=== PATIENT | female | born 1990 | race American Indian/Alaskan Native ===

== ENCOUNTER → 2018-03-12 | Outpatient (CLI) | payer OTHER ==
[~2018-03-12] MED LIST: Amoxicillin875 MG PO; CEPH500 PO; FAMO20 PO; FERSU125EA PO; HYDACE5 PO; IBUP800 PO; Keflex500 MG PO; NEOPOLHCSU BOTHEARS; ONDA4ODT MM; ONDA8 PO; ONDA8ODT MM; PRENZ PO; PROM25S PR; RXHYD5325 PO; Zofran Odt4 MG SL
== END ==
LOC: LAB 19:03 → LAB SHORT 19:03
PROVIDERS: Nurse Practitioner Family
DX: Z01.419 Encounter for gynecological examination (general) (routine) without abnormal findings (principal)
CPT/HCPCS: G0145

== ENCOUNTER 2018-05-13 12:10 | Day surgery (SDC) | payer OTHER ==
[~2018-05-13] VITALS: Ht 180.3 cm; Wt 97.1 kg
== END 2018-05-13 23:04 | disposition home or self-care (01) ==
LOC: ORSCMMR 12:10 → ORD 13:30 → ORSCMMR 13:30
PROVIDERS: Orthopaedic Surgery
PROC: 0SNDXZZ Release Left Knee Joint, External Approach (ICD-10-PCS; principal; 2018-05-13 13:30)
DX: M24.662 Ankylosis, left knee (principal)
CPT/HCPCS: J1100; J1885; J2250; J2405; J3010; J7120

== ENCOUNTER 2018-10-04 13:12 | Emergency (ER) | payer OTHER ==
[~2018-10-04] VITALS: Ht 180.3 cm; Wt 97.1 kg
[2018-10-04] MEDS ORDERED: KETO10 PO (13:44)
[2018-10-04] MEDS ORDERED: Cyclobenzaprine5 MG PO (13:44)
== END 2018-10-04 14:04 | disposition home or self-care (01) ==
LOC: ER 13:12
DX: S39.012A Strain of muscle, fascia and tendon of lower back, initial encounter (principal); X58.XXXA Exposure to other specified factors, initial encounter; Z88.5 Allergy status to narcotic agent; Z91.048 Other nonmedicinal substance allergy status
CPT/HCPCS: 96372; 99283-25; J1885

== ENCOUNTER 2019-01-23 08:26 | Emergency (ER) | payer OTHER ==
[~2019-01-23] VITALS: Ht 182.9 cm; Wt 99.8 kg
[~2019-01-23 08:26] MED LIST changes: +Cyclobenzaprine5 MG PO; +KETO10 PO
[2019-01-23] MEDS ORDERED: ONDA4ODT MM (09:13)
[2019-01-23] MEDS ORDERED: Augmentin 875-1 EACH PO (09:13)
== END 2019-01-23 10:36 | disposition home or self-care (01) ==
LOC: ER 08:26
DX: S61.452A Open bite of left hand, initial encounter (principal); S61.451A Open bite of right hand, initial encounter; S61.552A Open bite of left wrist, initial encounter; S61.551A Open bite of right wrist, initial encounter; W55.01XA Bitten by cat, initial encounter
CPT/HCPCS: 73090; 73130; 99283-25

== ENCOUNTER → 2019-03-10 | Outpatient (CLI) | payer OTHER ==
[~2019-03-10] MED LIST changes: +Augmentin 875-1 EACH PO
== END | disposition home or self-care (01) ==
LOC: LAB SHORT 14:50 → LAB EV 14:50
DX: R30.0 Dysuria (principal)
CPT/HCPCS: 87086

== ENCOUNTER → 2019-06-30 | Outpatient (CLI) | payer OTHER | END | disposition home or self-care (01) | LOC: LAB EV 16:47 → LAB SHORT 16:47 | DX: R51 Headache (principal) | CPT/HCPCS: 85651 ==

== ENCOUNTER 2019-09-16 07:56 | Emergency (ER) | payer OTHER ==
[~2019-09-16] VITALS: Ht 180.3 cm; Wt 99.8 kg
[2019-09-16] MEDS ORDERED: CYCL10 PO (08:54)
== END 2019-09-16 09:07 | disposition home or self-care (01) ==
LOC: ER 07:56
DX: S29.012A Strain of muscle and tendon of back wall of thorax, initial encounter (principal); X58.XXXA Exposure to other specified factors, initial encounter; Z88.5 Allergy status to narcotic agent; Z91.048 Other nonmedicinal substance allergy status
CPT/HCPCS: 99283

== ENCOUNTER → 2019-10-09 | Outpatient (CLI) | payer OTHER ==
[~2019-10-09] MED LIST changes: +CYCL10 PO
== END | disposition home or self-care (01) ==
LOC: LAB SHORT 11:30 → LAB EV 11:30
DX: R30.0 Dysuria (principal)
CPT/HCPCS: 87077; 87086; 87186

== ENCOUNTER → 2020-08-24 | Outpatient (CLI) | payer OTHER ==
[2020-08-26 14:57] LABS: CORONAVIRUS (COVID19) CSH-NRL Negative (Negative)
== END | disposition home or self-care (01) ==
LOC: LAB 16:31 → LAB SHORT 16:31
PROVIDERS: Family Medicine
DX: Z20.828 Contact with and (suspected) exposure to other viral communicable diseases (principal)
CPT/HCPCS: U0003

== ENCOUNTER 2021-01-05 08:02 | Day surgery (SDC) | payer OTHER ==
[~2021-01-05] VITALS: Ht 182.9 cm; Wt 99.5 kg
[2021-01-05] MEDS ORDERED: PSEUDOEPHEDRINE30 M1 PO (08:31)
[2021-01-05] MEDS ORDERED: ERGO50000 PO (08:31)
[2021-01-05] MEDS ORDERED: PSEUDOEPHEDRINE30 M1 (08:32)
== END 2021-01-05 09:56 | disposition home or self-care (01) ==
LOC: ORSCSDS 08:02
PROVIDERS: Internal Medicine Gastroenterology
PROC: 0DBK8ZX Excision of Ascending Colon, Via Natural or Artificial Opening Endoscopic, Diagnostic (ICD-10-PCS; principal; 2021-01-05 09:15)
PROC: 0DBC8ZX Excision of Ileocecal Valve, Via Natural or Artificial Opening Endoscopic, Diagnostic (ICD-10-PCS; principal; 2021-01-05 09:15)
DX: R10.31 Right lower quadrant pain (principal); D12.2 Benign neoplasm of ascending colon; K64.8 Other hemorrhoids; K52.9 Noninfective gastroenteritis and colitis, unspecified; Z79.899 Other long term (current) drug therapy
CPT/HCPCS: 88305; J2704; J7120

== ENCOUNTER → 2023-10-19 | Outpatient (CLI) | payer OTHER ==
[~2023-10-19] MED LIST changes: +ERGO50000 PO; +PSEUDOEPHEDRINE30 M1; +PSEUDOEPHEDRINE30 M1 PO
== END ==
LOC: LAB SHORT 10:34 → LAB 10:34
DX: N39.0 Urinary tract infection, site not specified (principal)
CPT/HCPCS: 87086

== ENCOUNTER 2023-11-27 17:56 | Emergency (ER) | payer OTHER ==
[~2023-11-27] VITALS: Ht 182.9 cm; Wt 86.2 kg
[2023-11-27 18:16] VITALS: BP 128/81
[2023-11-27 19:07] LABS: Influenza A, PCR NEGATIVE (NEGATIVE); Influenza B, PCR NEGATIVE (NEGATIVE); Resp Syncytial Virus, PCR NEGATIVE (NEGATIVE); SARS-Cov-2 (COVID-19) PCR, MMC NEGATIVE (NEGATIVE)
[2023-11-27] MEDS ORDERED: Flonase 0.05% N16 GM (19:59)
== END 2023-11-27 20:01 | disposition home or self-care (01) ==
LOC: ER 17:56
PROVIDERS: Student in an Organized Health Care Education/Training Program
DX: J06.9 Acute upper respiratory infection, unspecified (principal); J34.89 Other specified disorders of nose and nasal sinuses; Z91.048 Other nonmedicinal substance allergy status; Z88.5 Allergy status to narcotic agent; Z79.899 Other long term (current) drug therapy; Z79.51 Long term (current) use of inhaled steroids
CPT/HCPCS: 0241U; 99283

== ENCOUNTER → 2024-05-06 | Outpatient (CLI) | payer OTHER ==
[~2024-05-06] MED LIST changes: +Flonase 0.05% N16 GM
[2024-05-06 10:25] LABS: BASOPHILS ABSOLUTE AUTO 0.03 K/mm3 (0.00-0.23); BASOPHILS PERCENT AUTO 0 % (0-2); EOSINOPHILS ABSOLUTE AUTO 0.11 K/mm3 (0.00-0.68); EOSINOPHILS PERCENT AUTO 1 % (0-6); Hemoglobin 13.8 g/dL (11.5-16.0); IMMATURE GRAN ABSOLUTE AUTO 0.01 K/mm3 (0.00-0.10); IMMATURE GRAN PERCENT AUTO 0 % (0-1); LYMPHOCYTES ABSOLUTE AUTO 3.19 K/mm3 (0.84-5.20); LYMPHOCYTES PERCENT AUTO 39 % (21-46); MONOCYTES ABSOLUTE AUTO 0.57 K/mm3 (0.16-1.47); MONOCYTES PERCENT AUTO 7 % (4-13); Mean Corpuscular HGB 27.6 pg (26.0-34.0); Mean Corpuscular HGB Conc 32.1 g/dL (31.5-36.5); Mean Corpuscular Volume 86 fL (80-100); Mean Platelet Volume 11.3 fL (9.1-12.4); NEUTROPHILS ABSOLUTE AUTO 4.19 K/mm3 (1.96-9.15); NEUTROPHILS PERCENT AUTO 52 % (41-73); Platelet Count 266 K/mm3 (150-400); RDW Coefficient Variation 13.5 % (11.7-14.2); RDW Standard Deviation 42.7 fL (35.1-46.3)
[2024-05-06 10:31] LABS: Bun/Creatinine Ratio 14.1 (12.0-20.0); Calcium, Blood 8.9 mg/dL (8.5-10.1); Creatinine, Blood 0.99 mg/dL (0.40-1.00); Potassium, Blood 3.7 mmol/L (3.5-5.5)
== END | disposition home or self-care (01) ==
LOC: LAB 10:06 → LAB SHORT 10:06
PROVIDERS: Physician Assistant Medical
DX: R82.81 Pyuria (principal); R10.32 Left lower quadrant pain
CPT/HCPCS: 80048; 85025; 87077; 87086; 87186

== ENCOUNTER 2024-08-09 20:45 | Emergency (ER) | payer OTHER ==
[~2024-08-09] VITALS: Ht 180.3 cm; Wt 104.3 kg
[2024-08-09 20:48] VITALS: BP 140/91
== END 2024-08-09 23:13 | disposition home or self-care (01) ==
LOC: ER 20:45
DX: S10.96XA Insect bite of unspecified part of neck, initial encounter (principal); W57.XXXA Bitten or stung by nonvenomous insect and other nonvenomous arthropods, initial encounter; Z79.51 Long term (current) use of inhaled steroids; Z79.899 Other long term (current) drug therapy; Z88.5 Allergy status to narcotic agent; Z91.048 Other nonmedicinal substance allergy status
CPT/HCPCS: 99282

== ENCOUNTER 2024-10-09 06:06 | Day surgery (SDC) | payer OTHER ==
[2024-10-09] VITALS (15 sets, daily range): BP systolic 103–136; BP diastolic 55–86
[~2024-10-09] VITALS: Ht 180.3 cm; Wt 99.5 kg
[~2024-10-09 06:06] MED LIST changes: +ALBU90OI INH
[2024-10-09] MEDS ORDERED: Lactated Ringer's 1,000 ML IV SCH ×2 (06:10→11:05)
[2024-10-09] MEDS ORDERED: CeFAZolin Sodium 2,000 MG in NS 100 ML IV SCH ×2 (06:10→14:00)
[2024-10-09] MEDS ORDERED: propofoL 20 ML IV ONE (06:58)
[2024-10-09] MEDS ORDERED: CeFAZolin Sodium 2,000 MG VIAL ONE (06:59)
[2024-10-09] MEDS ORDERED: Rocuronium Bromide 10 MG/ML 5ML Injection IV ONE ×3 (06:59→08:57)
[2024-10-09] MEDS ORDERED: Dexamethasone Sod Phos 10 MG/ML 1ML VIAL ONE (06:59)
[2024-10-09] MEDS ORDERED: FentaNYL Citrate 50 MCG/ML 5 ML Injection ONE ×2 (06:59→08:33)
[2024-10-09] MEDS ORDERED: Ondansetron HCl 2 MG / ML 2ML Vial ONE ×2 (06:59→10:15)
[2024-10-09] MEDS ORDERED: Ketorolac Tromethamine 30mg Vial ONE (06:59)
[2024-10-09] MEDS ORDERED: Lidocaine HCl 2% 20 ML MDV ONE (07:00)
[2024-10-09] MEDS ORDERED: Bupivacaine 0.5% HCl 5 MG/ML 30MLVIAL ONE (07:07)
[2024-10-09] MEDS ORDERED: DiphenhydrAMINE HCl 50 MG/ML 1ML Vial ONE (07:46)
[2024-10-09] MEDS ORDERED: Labetalol HCL 5 MG/ML 4ML Injection (Single Dose) ONE (08:00)
[2024-10-09] MEDS ORDERED: Glycopyrrolate 0.2 MG/ML 5ML VIAL ONE (08:13)
[2024-10-09] MEDS ORDERED: Sugammadex Sodium 200 MG/2ML SDV (100 MG/ML) ONE (09:57)
[2024-10-09] MEDS ORDERED: Prochlorperazine Edisylate 10 mg Vial ONE (10:52)
[2024-10-09] MEDS ORDERED: Albuterol HFA200 ACT/6.7 GM INH INH PRN (11:00)
[2024-10-09] MEDS ORDERED: HYDROmorphone HCl/Pf 1MG SYR ONE (11:03)
[2024-10-09] MEDS ORDERED: Promethazine HCl 25 MG Tab PO PRN (11:05)
[2024-10-09] MEDS ORDERED: FentaNYL Citrate 50 MCG/ML 2 ML Injection IV PRN (11:05)
[2024-10-09] MEDS ORDERED: Promethazine HCl 12.5 MG Supp PR PRN (11:05)
[2024-10-09] MEDS ORDERED: Naloxone HCl 0.4MG / ML 1ML Vial IV PRN (11:05)
[2024-10-09] MEDS ORDERED: FLU VACC TS2024-25(6MOS UP)/PF 45 MCG/0.5 ML SYRINGE IM SCH (11:05)
[2024-10-09] MEDS ORDERED: OxyCODONE 5 mg/Acetamin 325 mg TABLET PO PRN (11:10)
[2024-10-09] MEDS ORDERED: Ondansetron 4 MG TAB PO PRN (11:10)
[2024-10-09] MEDS ORDERED: Simethicone 80 MG Chew PO PRN (11:10)
[2024-10-09] MEDS ORDERED: Ondansetron HCl 2 MG / ML 2ML Vial IV PRN (11:10)
[2024-10-09] MEDS ORDERED: Ketorolac Tromethamine 30mg Vial IV PRN (11:15)
[2024-10-09] MEDS ORDERED: Percocet 5-3251 EACH PO (16:49)
[2024-10-09] MEDS ORDERED: PROMETHAZINE12.5 M1 PO (16:49)
[2024-10-09] MEDS ORDERED: SIME80CH PO (16:50)
[2024-10-10 05:00] VITALS: BP 102/63
[2024-10-10 05:49] LABS: BASOPHILS ABSOLUTE AUTO 0.01 K/mm3 (0.00-0.23); BASOPHILS PERCENT AUTO 0 % (0-2); EOSINOPHILS ABSOLUTE AUTO 0.01 K/mm3 (0.00-0.68); EOSINOPHILS PERCENT AUTO 0 % (0-6); Hematocrit 36.9 % (33.0-51.0); Hemoglobin 12.2 g/dL (11.5-16.0); IMMATURE GRAN ABSOLUTE AUTO 0.04 K/mm3 (0.00-0.10); IMMATURE GRAN PERCENT AUTO 0 % (0-1); LYMPHOCYTES ABSOLUTE AUTO 2.67 K/mm3 (0.84-5.20); LYMPHOCYTES PERCENT AUTO 24 % (21-46); MONOCYTES ABSOLUTE AUTO 0.89 K/mm3 (0.16-1.47); MONOCYTES PERCENT AUTO 8 % (4-13); Mean Corpuscular HGB Conc 33.1 g/dL (31.5-36.5); Mean Corpuscular Volume 85 fL (80-100); Mean Platelet Volume 11.8 fL (9.1-12.4); NEUTROPHILS ABSOLUTE AUTO 7.46 K/mm3 (1.96-9.15); NEUTROPHILS PERCENT AUTO 67 % (41-73); Platelet Count 225 K/mm3 (150-400); RDW Coefficient Variation 13.2 % (11.7-14.2); RDW Standard Deviation 41.5 fL (35.1-46.3); Red Blood Cell Count 4.36 M/mm3 (3.80-5.20); White Blood Cell Count 11.08 K/mm3 (4.00-11.30)
[2024-10-10 07:29] VITALS: BP 107/75
== END 2024-10-10 09:01 | disposition home or self-care (01) ==
LOC: ORSCMMR 06:06 → ORD 07:30 → ORSCMMR 07:30 → ORD 08:00 → SURS 11:29 → ORSCMMR 10-10 09:01
PROVIDERS: Obstetrics & Gynecology
PROC: 0U574ZZ Destruction of Bilateral Fallopian Tubes, Percutaneous Endoscopic Approach (ICD-10-PCS; principal; 2024-10-09 07:30)
PROC: 0UT7FZZ Resection of Bilateral Fallopian Tubes, Via Natural or Artificial Opening With Percutaneous Endoscopic Assistance (ICD-10-PCS; principal; 2024-10-09 07:30)
PROC: 0UT9FZZ Resection of Uterus, Via Natural or Artificial Opening With Percutaneous Endoscopic Assistance (ICD-10-PCS; principal; 2024-10-09 07:30)
DX: N92.1 Excessive and frequent menstruation with irregular cycle (principal); N94.6 Dysmenorrhea, unspecified; N94.12 Deep dyspareunia; N80.03 Adenomyosis of the uterus; N94.89 Other specified conditions associated with female genital organs and menstrual cycle; R10.2 Pelvic and perineal pain; N70.01 Acute salpingitis; E28.2 Polycystic ovarian syndrome; N80.101 Endometriosis of right ovary, unspecified depth; J45.909 Unspecified asthma, uncomplicated; E66.9 Obesity, unspecified; Z68.30 Body mass index [BMI] 30.0-30.9, adult; Z79.899 Other long term (current) drug therapy
CPT/HCPCS: 36415; 85025; 86850; 86900; 86901; 88307; 94762; A9270; J0690; J0780; J1100; J1171; J1200; J1885; J2405; J2704; J3010; J7120

== ENCOUNTER 2025-03-08 09:00 | Emergency (ER) | payer OTHER ==
[~2025-03-08] VITALS: Ht 182.9 cm; Wt 97.5 kg
[~2025-03-08 09:00] MED LIST changes: +PROMETHAZINE12.5 M1 PO; +Percocet 5-3251 EACH PO; +SIME80CH PO
[2025-03-08 09:51] VITALS: BP 151/108
[2025-03-08] MEDS ORDERED: Tetracaine HCl/Pf 0.5% Opth Soln 4 ml RIGHTEYE ONE (10:00)
[2025-03-08] MEDS ORDERED: Fluorescein Sod 1MG Opth Strips RIGHTEYE ONE (10:00)
[2025-03-08] MEDS ORDERED: Ketorolac Tromethamine 15mg Vial IV ONE (10:00)
[2025-03-08] MEDS ORDERED: PredniSONE 20 MG Tab PO ONE (10:05)
[2025-03-08] MEDS ORDERED: FentaNYL Citrate 50 MCG/ML 2 ML Injection IV ONE (10:05)
[2025-03-08] MEDS ORDERED: Lidocaine 4% 1 Patch TOP ONE (11:25)
[2025-03-08] MEDS ORDERED: OxyCODONE HCL 5 MG TAB PO ONE (11:25)
[2025-03-08] MEDS ORDERED: Ondansetron HCl 2 MG / ML 2ML Vial IV ONE (11:25)
[2025-03-08] MEDS ORDERED: GABA300 PO ×2 (13:21→14:09)
[2025-03-08] MEDS ORDERED: OXAYDO5 M1 PO (13:21)
[2025-03-08] MEDS ORDERED: PRED20 PO (13:21)
[2025-03-08] MEDS ORDERED: ONDA4ODT MM (14:03)
== END 2025-03-08 14:17 | disposition home or self-care (01) ==
LOC: ER 09:00
DX: B02.30 Zoster ocular disease, unspecified (principal); B02.21 Postherpetic geniculate ganglionitis; Z88.8 Allergy status to other drugs, medicaments and biological substances; Z88.5 Allergy status to narcotic agent
CPT/HCPCS: 96374; 96375; 99282-25; A9270; J1885; J2405; J3010; J7512